=== PATIENT | female | born 1955 | race Caucasian/White ===

== ENCOUNTER 2020-01-13 10:27 | Outpatient (CLI) | payer OTHER, MEDICARE | END 2020-01-13 23:59 | disposition home or self-care (01) | LOC: CFH 10:27 | PROVIDERS: ATTEND Family Medicine | DX: M85.80 Other specified disorders of bone density and structure, unspecified site (principal); N63.10 Unspecified lump in the right breast, unspecified quadrant; N64.89 Other specified disorders of breast | CPT/HCPCS: 76642; 77066; 77080; G0279 ==

== ENCOUNTER 2020-01-20 18:24 | Outpatient (CLI) | payer OTHER, MEDICARE | END 2020-01-20 23:59 | disposition home or self-care (01) | LOC: RAD 18:24 | PROVIDERS: ATTEND Family Medicine | DX: R19.03 Right lower quadrant abdominal swelling, mass and lump (principal) | CPT/HCPCS: 76705 ==